=== PATIENT | male | born 1995 | race Caucasian/White ===

== ENCOUNTER 2023-03-27 21:18 | Emergency (ER) | payer OTHER ==
[2023-03-27 21:37] VITALS: BP 137/83
[2023-03-27] MEDS ORDERED: IBUPROFEN 600 MG TABLET PO STA (21:37)
[2023-03-27] MEDS ORDERED: ONDANSETRON ODT 4 MG TABLET TL STA (21:48)
--- NOTE | 2023-03-27 21:50 | ED Physician Documentation ---
History of Present Illness - Stated complaint Stated Complaint: FLU LIKE SYMPTOM - Chief complaint Chief Complaint: Fever - History obtained from History obtained from: Patient - Additonal information Additional information: 27-year-old man, previously healthy, presents with fever and chills, frontal headache, and nonbloody nonbilious nausea and vomiting today. Also with mild epigastric abdominal pain worse with already.Denies diarrhea, urinary symptoms, back pain. Normal bowel movement today. He is flu vaccinated. Review of Systems Constitutional: reports: Chills, Myalgias, Fatigue Cardiac: denies: Chest pain / pressure Respiratory: denies: Dyspnea GI: reports: Abdominal Pain, Nausea, Vomiting. denies: Diarrhea : denies: Dysuria Musculoskeletal: denies: Back pain PD PAST MEDICAL HISTORY - Present Medications Home Medications: Ambulatory Orders Medication Instructions Recorded Confirmed Ondansetron Odt [Zofran Odt] 4 mg TL Q6H PRN #10 tablet 03/27/23 - Allergies Allergies/Adverse Reactions: Allergies Allergy/AdvReac Type Severity Reaction Status Date / Time No Known Drug Allergies Allergy Verified 03/27/23 21:25 PD ED PE NORMAL - Vitals Vital signs reviewed: Yes - General General: Alert and oriented X 3, No acute distress, Well developed/nourished - HEENT HEENT: Atraumatic, PERRL, EOMI - Neck Neck: Supple, no meningeal sign - Cardiac Cardiac: RRR - Respiratory Respiratory: No respiratory distress, Clear bilaterally - Abdomen Abdomen: Non tender, Non distended - Derm Derm: Normal color, Warm and dry - Neuro Neuro: Alert and oriented X 3 - Psych Psych: Normal mood, Normal affect Results - Vitals Vitals: Vital Signs - 24 hr 03/27/23 03/27/23 21:21 21:34 Temperature 36.4 C L Heart Rate 130 H 101 H Respiratory 19 20 Rate Blood Pressure 136/77 H 137/83 H O2 Saturation 95 95 Oxygen O2 Source Room air PD Medical Decision Making - ED course ED course: 27-year-old man presents with headache, fatigue, myalgia, n/v c/w acute viral illness. Oral Zofran and Motrin provided and symptomatic care discussed. Tolerating p.o. in the emergency department. Prescription sent to pharmacy and return precautions given. Plan to follow-up with primary care provider. Departure - Departure Clinical Impression: Vomiting, Fever, Headache Condition: Good Instructions: ED Nausea Vomiting Prescriptions: Ondansetron Odt [Zofran Odt] 4 mg TL Q6H PRN #10 tablet PRN Reason: Nausea / Vomiting Comments: You are seen in the emergency department for headache, vomiting, and feeling feverish. You likely have a virus. Make sure you stay well-hydrated and get lots of rest. Do not return to work until you are 24 hours without fever and with improving symptoms. Return to the emergency department if you have new or worsening symptoms or other concerns. Follow-up with your primary care provider.
== END 2023-03-27 22:05 | disposition home or self-care (01) ==
LOC: EDSEX → ED 21:18
DX: R11.2 Nausea with vomiting, unspecified (principal); R50.9 Fever, unspecified; R51.9 Headache, unspecified
CPT/HCPCS: 99282; 99284; A9270; Q0162

== ENCOUNTER 2023-09-19 17:29 | Emergency (ER) | payer OTHER ==
[2023-09-19 17:48] VITALS: O2SAT 100
--- NOTE | 2023-09-19 18:38 | ED Physician Documentation ---
PD HPI UPPER EXT INJURY - Stated complaint Stated Complaint: R HAND INJ - Chief complaint Chief Complaint: Trauma Ext - History obtained from History obtained from: Patient - History of Present Illness Location: Right, Hand Type of injury: Blunt / blow Where injury occurred: Home - Additonal information Additional information: 27-year-old male presents with right hand swelling and bruising. This occurred after he whacked the back of his right hand on his car while working on it last night. Pain is primarily over the knuckles and into the right fifth metacarpal region. He has good range of motion of the fingers and denies any other injuries. He has not attempted any medication or other treatment for this issue. PD PAST MEDICAL HISTORY - Past Medical History Past Medical History: No - Past Surgical History Past Surgical History: No - Present Medications Home Medications: Ambulatory Orders Medication Instructions Recorded Confirmed Ondansetron Odt [Zofran Odt] 4 mg TL Q6H PRN #10 tablet 03/27/23 - Allergies Allergies/Adverse Reactions: Allergies Allergy/AdvReac Type Severity Reaction Status Date / Time No Known Drug Allergies Allergy Verified 03/27/23 21:25 - Social History Does the pt smoke?: No Smoking Status: Never smoker PD ED PE NORMAL - Vitals Vital signs reviewed: Yes - General General: Alert and oriented X 3, No acute distress - Derm Derm: Normal color, Warm and dry, Other (Mild contusion over the dorsum of the right hand) - Extremities Extremities: No deformity, Normal ROM s pain, Other ( right hand. Mild contusion and swelling over the dorsum of the right hand with tenderness along the second through fourth PIP and into the dorsum of the hand. No obvious deformity.) - Neuro Neuro: Alert and oriented X 3 Eye Opening: Spontaneous Motor: Obeys Commands Verbal: Oriented GCS Score: 15 Results - Vitals Vitals: Vital Signs - 24 hr 09/19/23 17:37 Temperature 36.5 C Heart Rate 82 Respiratory 16 Rate Blood Pressure 151/89 H O2 Saturation 100 Oxygen O2 Source Room air - Rads (name of study) No standard instances Relevant Findings:: EMP independent interpretation of test PD Medical Decision Making - ED course Complexity details: d/w patient ED course: 27-year-old male presented with right hand injury as described in HPI. On arrival here, the patient has some bruising and mild swelling over the dorsum of the right hand with tenderness in the PIP joints of the second through fourth fingers but no obvious deformity. We did obtain an x-ray which I reviewed and I do not see any obvious fractures or dislocations. The final report is pending. I discussed with patient that I do did not suspect fracture but he does have some soft tissue contusion and recommended supportive measures including cool compress, light compression, ibuprofen or Tylenol as needed for pain. Return precautions reviewed if any signs of infection or other new concerns. Departure - Departure Disposition: 01 Home, Self Care Clinical Impression: Hand contusion Qualifiers: Encounter type: initial encounter Laterality: right Qualified Code(s): S60.221A - Contusion of right hand, initial encounter Condition: Good Instructions: ED Contusion Hand Comments: You have some bruising and swelling of the hand and fingers but I do not see any broken bones on the xray. You can use an sirena wrap and ice pack along with tylenol and ibuprofen as needed for pain. Pain should improve in the next few days. Forms: PCP List
[2023-09-19 18:42] VITALS: BP 140/86
--- NOTE | 2023-09-19 18:44 | XRAY Report ---
PROCEDURE: Hand 3 View RT INDICATIONS: trauma TECHNIQUE: 3 view(s) of the hand(s) acquired. COMPARISON: None FINDINGS: Bones: No fractures or dislocations. No suspicious bony lesions. Soft tissues: No suspicious soft tissue calcifications. IMPRESSION: Unremarkable hand radiographs Reviewed by: Miles Whitley MD on 09/19/2023 5:43 PM [place] Approved by: Miles Whitley MD on 09/19/2023 5:43 PM AKST Station ID: [id number]
== END 2023-09-19 18:39 | disposition home or self-care (01) ==
LOC: ED 17:29
DX: S60.221A Contusion of right hand, initial encounter (principal); W22.8XXA Striking against or struck by other objects, initial encounter; Y93.89 Activity, other specified; Y92.810 Car as the place of occurrence of the external cause
CPT/HCPCS: 99283

== ENCOUNTER 2024-01-20 04:21 | Emergency (ER) | payer OTHER ==
[2024-01-20 04:52] VITALS: O2SAT 96
[2024-01-20] MEDS: ONDANSETRON ODT 4 MG TABLET TL STA (05:00)
--- NOTE | 2024-01-20 05:01 | ED Physician Documentation ---
PD HPI NVD - Stated complaint Stated Complaint: V/N/D - Chief complaint Chief Complaint: Abd Pain - History obtained from History obtained from: Patient - Additonal information Additional information: The patient comes to the emergency department chief complaint of nausea vomiting diarrhea that began a few hours ago. His daughter and have had the same illness. He states that currently he is Somewhat nauseated still but has only vomited a couple times. No abdominal pain other than some burning over his stomach area. No respiratory symptoms. No fever or chills. His son had a similar illness about a week ago. No other complaints at this time. PD PAST MEDICAL HISTORY - Past Surgical History Past Surgical History: No - Present Medications Home Medications: Ambulatory Orders Medication Instructions Recorded Confirmed Ondansetron Odt [Zofran Odt] 4 mg TL Q6H PRN #10 tablet 03/27/23 Ondansetron Odt [Zofran] 4 mg TL Q6H PRN #14 tablet 01/20/24 - Allergies Allergies/Adverse Reactions: Allergies Allergy/AdvReac Type Severity Reaction Status Date / Time No Known Drug Allergies Allergy Verified 01/20/24 04:43 - Social History Does the pt smoke?: No Smoking Status: Never smoker PD ED PE NORMAL - Vitals Vital signs reviewed: Yes - General General: Alert and oriented X 3, No acute distress, Well developed/nourished - HEENT HEENT: Atraumatic, PERRL, EOMI, Moist mucous membranes - Neck Neck: Supple, no meningeal sign - Cardiac Cardiac: RRR, No murmur - Respiratory Respiratory: No respiratory distress, Clear bilaterally - Abdomen Abdomen: Soft, Non tender, Non distended - Derm Derm: Normal color, Warm and dry, No rash - Extremities Extremities: No deformity - Neuro Neuro: Alert and oriented X 3 - Psych Psych: Normal mood, Normal affect Results - Vitals Vitals: Vital Signs - 24 hr 01/20/24 04:41 Temperature 36.3 C L Heart Rate 100 Respiratory 18 Rate Blood Pressure 144/89 H O2 Saturation 96 Oxygen O2 Source Room air PD Medical Decision Making - ED course Complexity details: considered differential, d/w patient ED course: The patient was given a dose of ODT Zofran in the emergency department and I have prescribed the same for him. We have discussed the self-limited nature of this illness as well as Symptomatic management at home. We have discussed the usual indications for return. Departure - Departure Clinical Impression: Gastroenteritis Condition: Stable Instructions: ED Gastroenteritis Viral Prescriptions: Ondansetron Odt [Zofran] 4 mg TL Q6H PRN #14 tablet PRN Reason: Nausea / Vomiting
[2024-01-20 05:47] VITALS: BP 140/80
== END 2024-01-20 05:41 | disposition home or self-care (01) ==
LOC: ED 04:21
DX: K52.9 Noninfective gastroenteritis and colitis, unspecified (principal)
CPT/HCPCS: 99282; 99283; Q0162